=== PATIENT | female | born 1955 | race Caucasian/White ===

== ENCOUNTER → 2019-02-27 13:34 | Outpatient (CLI) | payer MEDICAID, SELFPAY ==
--- NOTE | 2019-02-27 13:37 | CT_ITS ---
PROCEDURE: CT LUNG SCREENING CLINICAL INDICATION: Nicotine dependence, 40 pack-year smoking history, asymptomatic for lung cancer COMPARISON: No exams were available for comparison TECHNIQUE: The exam was performed on a GE Light Speed [address] scanner using 2.90 mGy CTDI. A low dose helical CT CHEST was performed on a multi-detector scanner. All CT scans at the facility use one or more dose reduction, viz: automated exposure control, ma/kV adjustment per patient size (including targeted exams where dose is matched to indication, i.e. head), or iterative reconstruction technique. The LDCT was performed in a facility that meets the criteria for the screening program. Data regarding this exam was submitted to [employer] which is an approved registry. The order for this exam indicates that it came as a result of a lung cancer screening counseling shard decision-making visit that included all the elements required of such a visit including smoking cessation. The radiologist interpreting this exam meets the CMS criteria for the LDCT lung cancer screening program. The exam is reported using the Lung-RADS classification scale and reported to the ACR registry. NOTE: This study was performed for the specific purposes of lung cancer screening and is not an alternative to diagnostic chest CT. RADIATION DOSE: CTDI vol(CT dose Index-volume) = 2.90mG DLP (Dose Length Product) = 92.73 mGcm FINDINGS: COPD/centrilobular emphysema. Patchy ground-glass density right upper lobe inferiorly. Calcified granuloma right upper lobe medially. OTHER FINDINGS: In the left breast there is a 1.5 cm nodular density centrally image 43 series 3. In addition, there is an asymmetric density superiorly in the left breast at 8 mm. Image 34 series 3 mammography and ultrasound suggested. IMPRESSION: Lung rads category 3 probably benign regarding ground-glass attenuation right upper lobe. Six-month chest CT follow-up suggested. There are 2 nodules in the left breast which are indeterminate. Recommend mammogram and left breast ultrasound for further evaluation. Dictated by: Carlos Hartman MD 02/28/2019 07:22 Electronically signed by Carlos Hartman MD in [facility] 03/15/2019 06:48
== END ==
PROVIDERS: PCP Nurse Practitioner; Visit Provider Internal Medicine Medical Oncology
DX: Z87.891 Personal history of nicotine dependence (principal); Z12.2 Encounter for screening for malignant neoplasm of respiratory organs

== ENCOUNTER → 2019-04-10 13:47 | Outpatient (CLI) | payer MEDICAID, SELFPAY ==
--- NOTE | 2019-04-10 13:58 | MM_ITS ---
PROCEDURE: MM DIG MAMM BI DX W/CAD CLINICAL INDICATION: LT BREAST NODULE There is a history of breast cancer patient's mother. Two nodules are seen in the left breast on recent CT scan of the chest COMPARISON: No exams were available for comparison TECHNIQUE: . standard MLO and CC views were obtained FINDINGS: Diffuse heterogenic fibroglandular densities are seen throughout both breasts. There are 3-4 definite nodular lesions left breast the largest located centrally. There are per possibly 3 nodular lesions right breast as well. Recommend the patient return for ultrasound examination of both breasts. There are multiple scattered benign-appearing micro and macrocalcifications in each breast. There are no suspicious microcalcifications. IMPRESSION: Moderate heterogenic breast density with multiple nodular lesions in each breast more numerous left than right and recommend the patient return for follow-up ultrasound exam BI-RAD Category: 0 Need Additional Imaging Evaluation FOLLOW-UP: IMM Immediate Follow-up Recommended (A letter has been sent to the patient regarding results of the study.) Dictated by: Dr. Ivan Covarrubias MD 04/21/2019 10:[address] Ivan Covarrubias MD in [place] 04/21/2019 10:56
== END ==
PROVIDERS: PCP Nurse Practitioner; Visit Provider Internal Medicine Medical Oncology
DX: R92.8 Other abnormal and inconclusive findings on diagnostic imaging of breast (principal)
CPT/HCPCS: 77066

== ENCOUNTER → 2019-05-20 10:26 | Outpatient (CLI) | payer MEDICAID, SELFPAY ==
--- NOTE | 2019-05-20 10:32 | US_ITS ---
PROCEDURE: US BREAST LT COMPLETE CLINICAL INDICATION: BREAST LUMP Abnormal mammogram with multiple breast nodules COMPARISON: MM DIG MAMM BI DX W/CAD from 04/10/2019 US BREAST RT COMPLETE from 05/20/2019 FINDINGS: Left breast: 15 mm cyst at 12 o'clock, 7 mm complicated cyst at 1 o'clock, 4 mm cyst at 3 o'clock, 16 mm complicated cyst at 3 o'clock, 4 mm cyst at 5 o'clock, 7 mm cyst at 6 o'clock, 13 mm cyst in the retroareolar region, 4 mm cyst at 9 o'clock. No suspicious solid lesions evident. Right breast: 3 mm cyst at 12 o'clock, 3 mm cyst at 3 o'clock, 6 mm cyst at 8 o'clock,, 5 mm cyst at 8 o'clock, 6 mm cyst at 9 o'clock, 3 mm cyst at 9 o'clock near the nipple, 6 mm cyst at 9 o'clock near the nipple, 6 mm complicated cyst at 10 o'clock, 8 mm complicated cyst at 11 o'clock. No suspicious solid lesions IMPRESSION: Bilateral breast cysts some of which are complicated. BI-RADS category 3 probably benign. Recommend six-month mammographic and sonographic follow-up Dictated by: Carlos Hartman MD 05/22/2019 14:38 Electronically signed by Carlos Hartman MD in [place] 05/22/2019 14:38
== END ==
PROVIDERS: PCP Nurse Practitioner; Visit Provider Nurse Practitioner
DX: N60.12 Diffuse cystic mastopathy of left breast (principal); N60.11 Diffuse cystic mastopathy of right breast
CPT/HCPCS: 76641

== ENCOUNTER 2021-07-11 13:55 | Outpatient (RCR) | payer MEDICAID, SELFPAY | END 2021-08-14 14:36 | disposition home or self-care (01) | LOC: PT.CARL 13:55 | PROVIDERS: Visit Provider Physical Medicine & Rehabilitation | DX: I63.89 Other cerebral infarction (principal); R53.1 Weakness | CPT/HCPCS: 97163 ==

== ENCOUNTER 2021-07-11 13:59 | Outpatient (RCR) | payer MEDICAID, SELFPAY | END 2021-08-15 10:37 | disposition home or self-care (01) | LOC: OT 13:59 | PROVIDERS: Visit Provider Physical Medicine & Rehabilitation | DX: I63.89 Other cerebral infarction (principal); R53.1 Weakness | CPT/HCPCS: 97165 ==

== ENCOUNTER → 2021-12-20 09:29 | Outpatient (CLI) | payer MEDICAID, SELFPAY ==
--- NOTE | 2021-12-20 09:37 | MM_ITS ---
PROCEDURE INFORMATION: Exam: MG Bilateral Screening 3D Mammography Exam date and time: 12/20/2021 10:01 AM Age: 66 years old Clinical indication: Screening examination TECHNIQUE: Imaging protocol: Bilateral Screening tomosynthesis and 2D mammography including computer-aided detection (CAD) when performed. COMPARISON: 1. MG MM DIG MAMM BI DX W/CAD 04/10/2019 2:08 PM 2. US BREAST RT COMPLETE 05/20/2019 10:54 AM FINDINGS: MAMMOGRAPHY: Breast composition: The breasts are heterogeneously dense, which may obscure small masses. Mass: No suspicious masses. Architectural distortion: None. Calcifications: No suspicious calcifications. Asymmetric density: None. Skin thickening: None. Axillary adenopathy: None. IMPRESSION: No mammographic evidence of malignancy. Annual screening is recommended unless otherwise clinically indicated. ASSESSMENT: BI-RADS Category 1: Negative
== END ==
PROVIDERS: PCP Nurse Practitioner; Visit Provider Nurse Practitioner
DX: Z12.31 Encounter for screening mammogram for malignant neoplasm of breast (principal)
CPT/HCPCS: 77063; 77067

== ENCOUNTER 2024-02-07 14:25 | Outpatient (CLI) | payer MEDICAID, SELFPAY ==
--- NOTE | 2024-02-07 14:29 | MM_ITS ---
PROCEDURE INFORMATION: Exam: MG Bilateral Screening 3D Mammography Exam date and time: 02/07/2024 2:16 PM Age: 68 years old Clinical indication: Screening examination. Her mother had breast cancer. TECHNIQUE: Imaging protocol: Bilateral Screening tomosynthesis and 2D mammography including computer-aided detection (CAD) when performed.The technologist's notes document that best images possible were obtained to the patient's abilities. COMPARISON: 1. MG MM DIG SCREENING MAMM BI W/CAD 12/20/2021 10:01 AM 2. MG MM DIG MAMM BI DX W/CAD 04/10/2019 2:08 PM 3. US BREAST RT COMPLETE 05/20/2019 10:54 AM 4. US BREAST LT COMPLETE 05/20/2019 10:28 AM FINDINGS: MAMMOGRAPHY: Breast composition: The breasts are heterogeneously dense, which may obscure small masses. Mass: No suspicious mass. Architectural distortion: None. Calcifications: No suspicious calcifications. Asymmetric density: None. Skin thickening: None. Axillary adenopathy: None. IMPRESSION: No mammographic evidence of malignancy. Annual screening is recommended unless otherwise clinically indicated. ASSESSMENT: BI-RADS Category 1: Negative.
== END 2024-02-07 23:59 | disposition home or self-care (01) ==
LOC: RAD 14:26
PROVIDERS: PCP Nurse Practitioner; Visit Provider Nurse Practitioner
DX: Z12.31 Encounter for screening mammogram for malignant neoplasm of breast (principal)
CPT/HCPCS: 77063; 77067

== ENCOUNTER 2024-02-26 13:36 | Outpatient (CLI) | payer MEDICAID, SELFPAY ==
--- NOTE | 2024-02-26 13:40 | CT_ITS ---
FINAL REPORT TECHNIQUE: Thin section axial images were obtained from the lung apices to the upper abdomen by computed tomography. Reformatted images were obtained and reviewed. This study was performed with techniques to keep radiation doses al low as reasonably achievable (ALARA). Individualized dose reduction techniques using automated exposure control or adjustment of mA and/or kV according to the patient's size were employed. CLINICAL HISTORY: current smoker, 1/2 ppd x52 yrs COMPARISON: 02/27/2019 report only, images not available FINDINGS: CHEST CT LOW DOSE CTDI vol (mGy): 2.90 DLP (mGy-cm): 93.51 There are small mediastinal nodes. There is no axillary mass or adenopathy. A 16mm left breast nodule is partially imaged and mentioned on the prior report, images are not available. The heart is normal in size. There is no pericardial or pleural effusion. There is moderate emphysema and mild pulmonary scarring. Lung window images demonstrate a new apparent cluster of small nodules in the posterior lingula measuring up to 4 mm, well-seen on series 3 images 42 through 46. There is an 8 mm groundglass nodule in the right upper lobe on series 3 image 29. A calcified granuloma is noted in the right lung. Limited images of the upper abdomen are unremarkable. IMPRESSION: New cluster of small nodules up to 4 mm in the posterior lingula. Lung-RADS category 2. Recommend 12 month follow up low dose chest CT. Reviewed, Interpreted and Dictated by Keo Choe III, MD Transcribed by Desirae Winkler Authenticated and [facility]
== END 2024-02-26 23:59 | disposition home or self-care (01) ==
LOC: RAD 13:37
PROVIDERS: PCP Nurse Practitioner; Visit Provider Nurse Practitioner
DX: F17.210 Nicotine dependence, cigarettes, uncomplicated (principal)
CPT/HCPCS: 71271

== ENCOUNTER 2024-05-04 13:52 | Outpatient (CLI) | payer MEDICAID, SELFPAY ==
--- NOTE | 2024-05-04 13:56 | MM_ITS ---
PROCEDURE INFORMATION: Exam: US Left Breast, Complete MG Left Diagnostic Breast Tomosynthesis Exam date and time: 05/04/2024 2:33 PM Age: 68 years old Clinical indication: Left breast nodule seen on CT TECHNIQUE: Imaging protocol: Complete ultrasound of all four quadrants of the left breast and the retroareolar regions, including ultrasound of the axilla when performed. Left Diagnostic tomosynthesis and 2D mammography including computer-aided detection (CAD) when performed. Unilateral or bilateral exam. COMPARISON: US BREAST LT COMPLETE 05/20/2019 10:28 AM FINDINGS: MAMMOGRAPHY: Breast composition: There are scattered areas of fibroglandular density. Breast mammogram findings: There is no stellate mass, architectural distortion or suspicious microcalcifications to suggest malignancy. No skin thickening or axillary adenopathy. Spot compression views of the middle third of the left 12 o'clock axis demonstrates a stable lobulated 1.5 cm mass ULTRASOUND: Breast ultrasound findings: Sonographic images of the left upper outer quadrant 6 cm from the nipple demonstrates 2 adjacent cysts with a combined dimension of 1.7 cm corresponding to the lobulated mass on mammography. Few additional scattered subcentimeter simple and debris-filled cysts are noted in the remainder of the left breast. No solid masses. No architectural distortion or acoustic shadowing. IMPRESSION: No mammographic or sonographic evidence of malignancy. Benign cystic change in the left breast. Mass on CT scan in the left breast corresponds to benign cystic change. Annual bilateral mammographic screening is recommended in February 2025 unless otherwise clinically indicated. ASSESSMENT: BI-RADS Category 2: Benign.
== END 2024-05-04 23:59 | disposition home or self-care (01) ==
LOC: RAD 13:53
PROVIDERS: PCP Nurse Practitioner; Visit Provider Nurse Practitioner
DX: N63.21 Unspecified lump in the left breast, upper outer quadrant (principal)
CPT/HCPCS: 76641; 77061; 77065; G0279

== ENCOUNTER 2025-01-25 14:15 | Outpatient (CLI) | payer MEDICARE, MEDICAID, SELFPAY ==
[2025-01-25 20:00] LABS: Hematocrit 36.9 % (37.0-47.0); Hemoglobin 11.6 g/dL (12.2-16.2); Immature Granulocytes % 0.2 %; Mean Corpuscular HGB Conc 31.4 g/dL (31.8-35.4); Mean Corpuscular Hemoglobin 26.1 pg (27.0-31.2); Mean Corpuscular Volume 83.1 fl (81-99); Nucleated Red Blood Cells % 0 %; Platelet Count 232 K/mm3 (142-424); Red Blood Count 4.44 M/mm3 (4.20-5.40); Red Cell Distribution Width-SD 44.1 fL; White Blood Count 8.8 K/mm3 (4.8-10.8)
[2025-01-25 20:12] LABS: Albumin Level 4.4 g/dl (3.5-5.0); Chloride 99 mmol/L (98-107); Potassium 4.5 mmoL/L (3.5-5.1); Sodium 140 mmol/L (136-145)
[2025-01-25 20:14] LABS: Alanine Aminotransferase 16 U/L (12-78); Aspartate Amino Transferase 34 U/L (14-36); Blood Urea Nitrogen 23 mg/dl (7-17); Creatinine,Serum 1.80 mg/dl (0.52-1.04); Estimated Glomerular Filt Rate 28 ml/min (>60); GFR (African American) 34 ML/MIN (>60)
[2025-01-25 20:15] LABS: Albumin/Globulin Ratio 1.3 (1.1-1.8); Alkaline Phosphatase 101 U/L (38-126); Anion Gap 19.5 mEq/L (5-15); Bilirubin,Total 0.5 mg/dl (0.2-1.3); Calcium 9.8 mg/dl (8.4-10.2); Carbon Dioxide 26 mmol/L (22.0-30.0); Cholesterol 299 mg/dl (140-200); Globulin 3.3 g/dL (1.3-3.2); Glucose 70 mg/dl (74-100); HDL Cholesterol 49 mg/dl (40-60); Total Protein,Serum 7.7 g/dl (6.3-8.2); Triglycerides 270 mg/dl (30-150)
[2025-01-25 20:32] LABS: T4 (Thyroxine) 7.8 ug/dl (5.53-11.0)
[2025-01-25 20:34] LABS: 25-OH Vitamin D, Total 22.9 ng/mL (30-100)
[2025-01-25 20:46] LABS: Thyroid Stimulating Hormone 3.95 uIU/mL (0.465-4.68)
--- OUTSIDE RECORDS SUMMARY | 2025-01-26 13:32 | XMS_ITS | Clinical Summary ---
Author Organization [facility] Address [address] [place] [address] Care Team Providers Care Layout Operator Name Role Phone Lucie Cartagena APRN Primary Care Provider + [phone] Allergies Active Allergy Reactions Criticality Noted Date Comments Amoxicillin Unknown - Patient st ates they do not know rxn details Low 06/14/2021 Nortriptyline Unknown - Patient st ates they do not know rxn details Low 06/14/2021 Tricyclic Antidepressants Unknown - Lucía ent states they do not know rxn details Low 06/14/2021 Medications PARoxetine (Paxil) 20 MG tablet Take 20 mg by mouth 1 (one) time each day. Active furosemide (Lasix) 20 MG tablet Take 20 mg by mouth 1 (one) time each day. Active aspirin 81 MG chewable tablet Chew 81 mg 1 (one) time each day. Active amitriptyline (Elavil) 50 MG tablet Take 100 mg by mouth every night. Active hydrOXYzine pamoate (Vistaril) 25 MG capsule Take 25 mg by mouth 3 (three) times a day if needed for itching. Active ezetimibe (Zetia) 10 MG tablet Take 10 mg by mouth 1 (one) time each day. Active fenofibrate (Tricor) 145 MG tablet Take 145 mg by mouth 1 (one) time each day. Active albuterol 108 (90 Base) MCG/ACT inhaler Inhale 2 puffs every 6 (six) hours if needed for wheezing. Active tretinoin (Retin-A) 0.01 % gel Apply 1 application topically every night. Active Denture Care Products (Fixodent Original) cream Acti ve Tiotropium [place] Monohydrate (Spiriva Respimat) 2.5 MCG/ACT inhaler Inhale 2 puffs 1 (one) time each day. Active estrogens, conjugated, (Premarin) 0.625 MG tablet Take 0.625 mg by mouth 1 (one) time each day. Take daily for 21 days then do not take for 7 days. Active albuterol 1.25 MG/3ML nebulizer solution Take 1.25 mg by nebulization. Active amLODIPine (Norvasc) 10 MG tablet Take 1 tablet (10 mg total) by mouth 1 (one) time each day. 30 tablet 2 Active atorvastatin (Lipitor) 40 MG tablet 1 tablet (40 mg total) by Per G Tube route every night. 30 tablet 2 Active losartan (Cozaar) 25 MG tablet Take 1 tablet (25 mg total) by mouth 1 (one) time each day. 30 tablet 2 Active melatonin 3 MG tablet Take 1 tablet (3 mg total) by mouth at night if needed for sleep. 30 tablet 2 Active metoprolol succinate XL (Toprol-XL) 50 MG 24 hr tablet Take 1 tablet (50 mg total) by mouth 1 (one) time each day. Do not crush or chew. 30 tablet 2 Active Active Problems Problem Noted Date Diagnosed Date Cerebrovascular accident (CVA) 06/15/2021 Right sided weakness 06/14/2021 Social History Tobacco Use Types Packs/Day Years Used Date Smoking Tobacco: Every Day Smokeless Tobacco: Never Tobacco Cessation:Ready to Q uit: No; Counseling Given: Yes Alcohol Use Standard Drinks/Week Comments Never 0 (1 standard drink = 0.6 oz pur e alcohol) Comments Unknown Sex and Gender Information Value Date Recorded Sex Assigned at Not on file Legal Sex Female 8:24 PM EDT Gender Identity Not on file Sexual Orientation Not on file Last Filed Vital Signs Vital Sign Reading Time Taken Comments Blood Pressure 108/62 06/19/2021 1:37 PM EST Pulse 88 06/19/2021 1:37 PM EST Temperature 36.5 C (97.7 F) 06/19/2021 1:37 PM EST Respiratory Rate 18 06/19/2021 1:37 PM EST Oxygen Saturation 95% 06/19/2021 2:13 PM EST Inhaled Oxygen Concentration - - Weight 52.9 kg (116 lb 10 oz) 06/14/2021 2:00 PM EST Height - - Body Mass Index - - Plan of Treatment Health Maintenance Due Date Last Done Comments [facility]-Bone Density Scan 1957 [facility]-Depression Screening 1957 [facility]-Infant/Child/Adol SDOH Screenings 1955 [facility]- SDOH Screenings 09/10/1975 [facility]-Adult SDOH Screenings 09/10/1975 [facility]-DTaP,Tdap,and Td Vaccine s (1 - Tdap) 1976 CT Colonography 2002 Colonoscopy 2002 FIT-DNA 2002 FIT 2002 FOBT 2002 Sigmoidoscopy 2002 [facility]-Colorectal Cancer Screening 2002 [facility]-Pneumococcal Vaccine: 50 + Years (1 of 1 - PCV) 09/10/2007 [facility]-Zoster Vaccines (1 of 2) 09/10/2007 [id number] Vaccine ( season) 2025 01/26/2021, 08/04/2020, 07/07/2020 [facility]-Influenza Vaccine (#1) 01/04/202503/06, 02/19/2019, 04/21/2012 [facility]-RSV Vaccine: 60+ Years o r (1 - 1-dose 75+ series) 2032 HPV Vaccines Aged Out No longer eligi ble based on patient's age to complete this topic [facility]-HIB Vaccines Aged Out No longer e ligible based on patient's age to complete this topic [facility]-Hepatitis A Vaccines Aged Out No longer eligible based on patient's age to complete this topic [facility]-IPV Vaccines Aged Out No longer e ligible based on patient's age to complete this topic [facility]-Rotavirus Vaccines Aged Out No lo nger eligible based on patient's age to complete this topic Insurance [facility] MEDICAID [address] [place] [id number] [facility] MEDICAID Advance Directives * Full Code (Latest Code Status on File) Date Activated Date Inactivated Comments 06/14/2021 2:44 PM 06/19/2021 6:02 PM Question Answer Comments Patient has decision-making capacity? Yes Care Teams Layout Operator Relationship Specialty Start Date End Date Lucie Cartagena APRN [address] [place] [address] PCP - General 06/15/21
== END 2025-01-25 23:59 | disposition home or self-care (01) ==
LOC: LAB.DROPOF 01-26 13:29
PROVIDERS: PCP Family Medicine; Visit Provider Family Medicine
DX: E55.9 Vitamin D deficiency, unspecified (principal); I10 Essential (primary) hypertension; E78.5 Hyperlipidemia, unspecified; F41.9 Anxiety disorder, unspecified; F32.A Depression, unspecified; Z11.4 Encounter for screening for human immunodeficiency virus [HIV]
CPT/HCPCS: 80053; 80061; 82306; 84436; 84443; 85025; 87389

== ENCOUNTER 2025-02-24 08:50 | Outpatient (CLI) | payer MEDICARE, MEDICAID, SELFPAY ==
[2025-02-24 17:57] LABS: Anion Gap 16.7 mEq/L (5-15); Blood Urea Nitrogen 21 mg/dl (7-17); Calcium 9.9 mg/dl (8.4-10.2); Carbon Dioxide 28 mmol/L (22.0-30.0); Chloride 100 mmol/L (98-107); Creatinine,Serum 1.10 mg/dl (0.52-1.04); Estimated Glomerular Filt Rate 50 ml/min (>60); GFR (African American) 60 ML/MIN (>60); Glucose 94 mg/dl (74-100); Potassium 4.7 mmoL/L (3.5-5.1); Sodium 140 mmol/L (136-145)
== END 2025-02-24 23:59 | disposition home or self-care (01) ==
LOC: LAB.DROPOF 02-26 08:50
PROVIDERS: PCP Family Medicine; Visit Provider Family Medicine
DX: I10 Essential (primary) hypertension (principal)
CPT/HCPCS: 80048

== ENCOUNTER 2025-02-26 12:47 | Outpatient (CLI) | payer MEDICARE, MEDICAID, SELFPAY ==
--- OUTSIDE RECORDS SUMMARY | 2025-02-26 12:51 | XMS_ITS | Clinical Summary ---
Author Organization [facility] Address [address] [place] [address] Care Team Providers Care Cosmetics Machine Operator Name Role Phone Lucie Cartagena APRN Primary Care Provider + [phone] Allergies Active Allergy Reactions Criticality Noted Date [...] Products (Fixodent Original) cream Acti ve Tiotropium [place] Monohydrate (Spiriva Respimat) 2.5 MCG/ACT inhaler Inhale [...] [facility]-Bone Density Scan 1957 [facility]-Depression Screening 1957 [facility]-/Child/Adol SDOH Screenings 1957 [facility]- SDOH Screenings 09/10/1975 [facility]-Adult SDOH Screenings 09/10/1975 [facility]-DTaP,Tdap,and Td Vaccine s (1 - Tdap) 1976 CT Colonography 2002 Colonoscopy 2002 FIT-DNA 2002 FIT 2002 FOBT 2002 Sigmoidoscopy 2002 [facility]-Colorectal Cancer Screening 2002 [facility]-Pneumococcal Vaccine: 50 + Years (1 of 1 - PCV) 09/10/2007 [facility]-Zoster Vaccines (1 of 2) 09/10/2007 [id number] Vaccine ( season) 2025 01/26/2021, 08/04/2020, 07/07/2020 [...] patient's age to complete this topic Insurance [facility] MEDICAID Advance Directives * Full Code (Latest Code Status on File) Date Activated Date Inactivated Comments 06/14/2021 2:44 PM 06/19/2021 6:02 PM Question Answer Comments Patient has decision-making capacity? Yes Care Teams Cosmetics Machine Operator Relationship Specialty Start Date End Date Lucie Cartagena APRN [address] [place] [address] PCP - General 06/15/21
--- NOTE | 2025-02-26 13:00 | CT_ITS ---
FINAL REPORT CLINICAL HISTORY: lung cancer screening patient is a current smoker and smokes 1 pack per day. patient has been a smoker for 40 years. patient has a history of skin cancer on her nose. COMPARISON: 02/26/2024 FINDINGS: CT CHEST LOW DOSE SCREENING HISTORY: Screening exam for lung cancer. DOSE: CTDI vol: 2.0 mGy, DLP: 93.25 mGy*cm TECHNIQUE: Axial CT without IV contrast administration using low dose protocol. This study was performed with techniques to keep radiation doses as low as reasonably achievable, (ALARA). Individualized dose reduction techniques using automated exposure control or adjustment of mA and/or kV according to the patient's size were employed. No acute lung disease is present. No suspicious pulmonary nodules are identified. The previously described small cluster of nodules in the lingula has resolved compatible with resolved bronchiolitis. Moderate emphysematous changes are noted. No pleural or pericardial effusion is seen. No adenopathy or mass lesion is present. IMPRESSION: No suspicious nodules. LUNG RADS CATEGORY 1 RECOMMENDATION: 12 month LDCT follow up Reviewed, Interpreted and Dictated by Glen Guajardo MD Transcribed by Desirae Winkler Authenticated and [facility][1]
== END 2025-02-26 23:59 | disposition home or self-care (01) ==
PROVIDERS: PCP Family Medicine; Visit Provider Family Medicine
DX: Z12.2 Encounter for screening for malignant neoplasm of respiratory organs (principal); F17.210 Nicotine dependence, cigarettes, uncomplicated; J43.9 Emphysema, unspecified; Z85.828 Personal history of other malignant neoplasm of skin
CPT/HCPCS: 71271